=== PATIENT | female | born 1990 | race African-American/Black ===

== ENCOUNTER 2016-09-30 22:26 | Emergency (ER) | payer OTHER | END 2016-09-30 23:40 | disposition hospice, home (50) | LOC: CED 22:26 | DX: O9A.213 Injury, poisoning and certain other consequences of external causes complicating pregnancy, third trimester (principal); S30.1XXA Contusion of abdominal wall, initial encounter; Z3A.35 35 weeks gestation of pregnancy; V49.50XA Passenger injured in collision with unspecified motor vehicles in traffic accident, initial encounter; Y92.410 Unspecified street and highway as the place of occurrence of the external cause | CPT/HCPCS: 99285 ==